=== PATIENT | female | born 1965 | race African-American/Black ===

== ENCOUNTER 2018-03-08 00:02 | Emergency (ER) | payer MEDICAID, OTHER ==
[~2018-03-08] VITALS: Ht 160 cm; Wt 66.0 kg
[2018-03-08] MEDS ORDERED: INSULIN REGULAR (HUMULIN R) 300UNITS/3ML SUBCUT ONE (05:30)
[2018-03-08] MEDS ORDERED: SODIUM CHLORIDE 0.9% 1,000 ML IV ONE (06:05)
[2018-03-08 06:31] LABS: BASOPHILS % 1.2 % (0.0-2.0); HEMATOCRIT. 40.9 % (36.0-48.0); LYMPHOCYTES % 27.3 % (20.0-50.0); MEAN CORPUSCULAR HEMOGLOBIN 27.4 pg (28.0-32.0); MEAN CORPUSCULAR VOLUME 80.3 fL (81.0-99.0); MEAN PLATELET VOLUME 9.7 fl (7.4-10.4); MONOCYTES % 5.9 % (2.0-8.0); NEUTROPHILS % 64.6 % (40.0-76.0); PLATELET 195 x1000/uL (130-400); RED BLOOD CELL COUNT 5.09 mill/uL (4.2-5.4); RED CELL DISTRIBUTION WIDTH 14.1 % (11.6-14.6)
[2018-03-08 06:38] LABS: PROTHROMBIN TIME 9.7 sec (9.1-11.1)
[2018-03-08 06:40] LABS: CHLORIDE 104 mEq/L (98-107)
[2018-03-08 07:28] LABS: CLARITY URINE CLEAR (CLEAR); COLOR URINE YELLOW (YELLOW); KETONES URINE NEGATIVE (NEGATIVE); LEUKOCYTE ESTERASE URINE NEGATIVE (NEGATIVE); NITRITE URINE POSITIVE (NEGATIVE); OCCULT BLOOD URINE NEGATIVE (NEGATIVE); PH URINE 5.5 (4.5-8.0); PROTEIN URINE NEGATIVE (NEGATIVE); SPECIFIC GRAVITY URINE 1.044 (1.005-1.030); UROBILINOGEN URINE 0.2 E.U./dL (0.2-1.0)
[2018-03-08 08:47] VITALS: BP 172/96
== END 2018-03-08 18:04 | disposition home or self-care (01) ==
LOC: ER 00:02
DX: L03.011 Cellulitis of right finger (principal); E11.9 Type 2 diabetes mellitus without complications
CPT/HCPCS: 36415; 80053; 81003; 82962; 85025; 85610; 96360; 96361; 96372; 99285; J1815; J7030; Z7610

== ENCOUNTER 2020-07-28 13:20 | Emergency (ER) | payer MEDICAID ==
[~2020-07-28] VITALS: Ht 160 cm; Wt 48.0 kg
[2020-07-28 13:24] VITALS: BP 180/98
[2020-07-28 14:26] LABS: CLARITY URINE CLEAR (CLEAR); COLOR URINE YELLOW (YELLOW); KETONES URINE NEGATIVE (NEGATIVE); LEUKOCYTE ESTERASE URINE NEGATIVE (NEGATIVE); NITRITE URINE NEGATIVE (NEGATIVE); OCCULT BLOOD URINE NEGATIVE (NEGATIVE); PROTEIN URINE NEGATIVE (NEGATIVE); SPECIFIC GRAVITY URINE 1.006 (1.005-1.030); UROBILINOGEN URINE 0.2 E.U./dL (0.2-1.0)
[2020-07-28 14:38] LABS: BASOPHILS % 0.8 % (0.0-2.0); EOSINOPHILS % 0.7 % (0.0-5.0); HEMATOCRIT. 44.2 % (36.0-48.0); HEMOGLOBIN. 14.6 g/dL (12.0-16.0); LYMPHOCYTES % 40.9 % (20.0-50.0); MEAN CORPUSCULAR HEMOGLOBIN 27.2 pg (28.0-32.0); MEAN CORPUSCULAR VOLUME 82.4 fL (81.0-99.0); MEAN PLATELET VOLUME 9.7 fl (7.4-10.4); MONOCYTES % 8.3 % (2.0-8.0); NEUTROPHILS % 49.3 % (40.0-76.0); PLATELET 251 x1000/uL (130-400); RED BLOOD CELL COUNT 5.37 mill/uL (4.2-5.4); RED CELL DISTRIBUTION WIDTH 13.7 % (11.6-14.6)
[2020-07-28 14:42] LABS: CHLORIDE 97 mEq/L (98-107)
== END 2020-07-28 15:56 | disposition home or self-care (01) ==
LOC: ER 13:20
DX: E11.65 Type 2 diabetes mellitus with hyperglycemia (principal); Z91.11 Patient's noncompliance with dietary regimen; R03.0 Elevated blood-pressure reading, without diagnosis of hypertension; Z79.4 Long term (current) use of insulin
CPT/HCPCS: 36415; 80053; 81003; 81025; 82962; 85025; 93005; 99284

== ENCOUNTER 2021-01-02 16:36 | Emergency (ER) | payer OTHER ==
[~2021-01-02] VITALS: Ht 160 cm; Wt 47.0 kg
[2021-01-02 18:45] LABS: BASOPHILS % 0.9 % (0.0-2.0); EOSINOPHILS % 0.6 % (0.0-5.0); HEMATOCRIT. 40.3 % (36.0-48.0); HEMOGLOBIN. 13.6 g/dL (12.0-16.0); LYMPHOCYTES % 27.9 % (20.0-50.0); MEAN CORPUSCULAR HEMOGLOBIN 27.9 pg (28.0-32.0); MEAN CORPUSCULAR VOLUME 82.9 fL (81.0-99.0); MEAN PLATELET VOLUME 9.5 fl (7.4-10.4); MONOCYTES % 7.2 % (2.0-8.0); NEUTROPHILS % 63.4 % (40.0-76.0); PLATELET 252 x1000/uL (130-400); RED BLOOD CELL COUNT 4.87 mill/uL (4.2-5.4); RED CELL DISTRIBUTION WIDTH 13.8 % (11.6-14.6)
[2021-01-02 18:53] LABS: CHLORIDE 101 mEq/L (98-107)
[2021-01-02 19:20] LABS: CLARITY URINE CLEAR (CLEAR); COLOR URINE YELLOW (YELLOW); KETONES URINE NEGATIVE (NEGATIVE); LEUKOCYTE ESTERASE URINE NEGATIVE (NEGATIVE); NITRITE URINE NEGATIVE (NEGATIVE); OCCULT BLOOD URINE NEGATIVE (NEGATIVE); PH URINE 5.5 (4.5-8.0); PROTEIN URINE NEGATIVE (NEGATIVE); SPECIFIC GRAVITY URINE 1.041 (1.005-1.030); UROBILINOGEN URINE 0.2 E.U./dL (0.2-1.0)
[2021-01-02 19:20] LABS: PROTHROMBIN TIME 10.9 sec (9.6-11.0)
[2021-01-02] MEDS ORDERED: INSULIN REGULAR (HUMULIN R) 300UNITS/3ML VIAL IV ONE (19:30)
[2021-01-02] MEDS ORDERED: SODIUM CHLORIDE 0.9% 1,000 ML IV ONE (19:30)
[2021-01-02 22:18] VITALS: BP 166/91
[2021-01-02] MEDS ORDERED: POLY119P2 MT (22:21)
[2021-01-02] MEDS ORDERED: DOCU100T MT (22:21)
== END 2021-01-02 22:43 | disposition home or self-care (01) ==
LOC: ER 16:41
DX: R10.32 Left lower quadrant pain (principal); K59.00 Constipation, unspecified; E11.65 Type 2 diabetes mellitus with hyperglycemia; I10 Essential (primary) hypertension; E86.0 Dehydration; K52.89 Other specified noninfective gastroenteritis and colitis; Z79.4 Long term (current) use of insulin
CPT/HCPCS: 36415; 74176; 80053; 81003; 82962; 83690; 85025; 85610; 93005; 96361; 96374; 99285; J1815; J7030; Z7610

== ENCOUNTER 2021-01-25 07:34 | Emergency (ER) | payer OTHER ==
[~2021-01-25] VITALS: Ht 160 cm; Wt 45.0 kg
[~2021-01-25 07:34] MED LIST: DOCU100T MT; POLY119P2 MT
[2021-01-25] MEDS ORDERED: SODIUM CHLORIDE 0.9% 1,000 ML IV ONE (08:00)
[2021-01-25 08:13] LABS: BASOPHILS % 0.8 % (0.0-2.0); EOSINOPHILS % 0.8 % (0.0-5.0); HEMATOCRIT. 36.8 % (36.0-48.0); HEMOGLOBIN. 12.8 g/dL (12.0-16.0); LYMPHOCYTES % 27.7 % (20.0-50.0); MEAN CORPUSCULAR HEMOGLOBIN 28.3 pg (28.0-32.0); MEAN CORPUSCULAR VOLUME 81.3 fL (81.0-99.0); MEAN PLATELET VOLUME 8.9 fl (7.4-10.4); MONOCYTES % 7.5 % (2.0-8.0); NEUTROPHILS % 63.2 % (40.0-76.0); PLATELET 249 x1000/uL (130-400); RED BLOOD CELL COUNT 4.53 mill/uL (4.2-5.4); RED CELL DISTRIBUTION WIDTH 13.6 % (11.6-14.6)
[2021-01-25 08:20] LABS: CHLORIDE 102 mEq/L (98-107)
[2021-01-25] MEDS ORDERED: ONDANSETRON HCL 4MG/2ML INJ IV ONE (10:45)
[2021-01-25] MEDS ORDERED: MORPHINE SULFATE 4 MG/ML CPJ (NOT FOR IM USE) IV ONE (10:45)
[2021-01-25 12:57] LABS: CLARITY URINE CLEAR (CLEAR); COLOR URINE YELLOW (YELLOW); KETONES URINE NEGATIVE (NEGATIVE); LEUKOCYTE ESTERASE URINE NEGATIVE (NEGATIVE); NITRITE URINE NEGATIVE (NEGATIVE); OCCULT BLOOD URINE NEGATIVE (NEGATIVE); PROTEIN URINE NEGATIVE (NEGATIVE); SPECIFIC GRAVITY URINE 1.019 (1.005-1.030); UROBILINOGEN URINE 0.2 E.U./dL (0.2-1.0)
[2021-01-25] MEDS ORDERED: DOCU-286 MT (15:06)
[2021-01-25] MEDS ORDERED: MAGN296S70 MT (15:06)
[2021-01-25] MEDS ORDERED: NAPR375T5 MT (15:07)
[2021-01-25 15:24] VITALS: BP 172/80
== END 2021-01-25 15:26 | disposition home or self-care (01) ==
LOC: ER 07:34
DX: D25.9 Leiomyoma of uterus, unspecified (principal); K59.00 Constipation, unspecified; E11.9 Type 2 diabetes mellitus without complications
CPT/HCPCS: 36415; 74177; 76830; 76856; 80053; 81003; 82962; 83690; 85025; 93005; 96361; 96374; 96375; 99285; J2270; J2405; J7030; Z7610

== ENCOUNTER 2021-09-17 23:24 | Emergency (ER) | payer OTHER ==
[~2021-09-17] VITALS: Ht 162.6 cm; Wt 69.0 kg
[~2021-09-17 23:24] MED LIST changes: +DOCU-286 MT; +MAGN296S70 MT; +NAPR375T5 MT
[2021-09-17 23:25] VITALS: BP 138/74
== END 2021-09-18 00:23 | disposition home or self-care (01) ==
LOC: ER 23:24
DX: K59.00 Constipation, unspecified (principal); E11.9 Type 2 diabetes mellitus without complications
CPT/HCPCS: 99283

== ENCOUNTER 2021-10-06 23:16 | Emergency (ER) | payer OTHER ==
[~2021-10-06] VITALS: Ht 162.6 cm; Wt 60.0 kg
[2021-10-06 23:26] VITALS: BP 173/84
== END 2021-10-07 00:25 | disposition left against medical advice (07) ==
LOC: ER 23:16
DX: R55 Syncope and collapse (principal); I10 Essential (primary) hypertension; E11.9 Type 2 diabetes mellitus without complications
CPT/HCPCS: 99283

== ENCOUNTER 2021-12-20 15:12 | Emergency (ER) | payer OTHER ==
[~2021-12-20] VITALS: Ht 162.6 cm; Wt 61.0 kg
[2021-12-20] MEDS ORDERED: KETOROLAC 30MG/ML VIAL IM ONE (21:15)
[2021-12-20 22:31] LABS: BASOPHILS % 0.4 % (0.0-2.0); EOSINOPHILS % 0.2 % (0.0-5.0); HEMATOCRIT. 40.7 % (36.0-48.0); HEMOGLOBIN. 13.8 g/dL (12.0-16.0); MEAN CORPUSCULAR HEMOGLOBIN 27.7 pg (28.0-32.0); MEAN CORPUSCULAR VOLUME 81.6 fL (81.0-99.0); MEAN PLATELET VOLUME 9.1 fl (7.4-10.4); MONOCYTES % 3.1 % (2.0-8.0); NEUTROPHILS % 85.3 % (40.0-76.0); PLATELET 207 x1000/uL (130-400); RED BLOOD CELL COUNT 4.99 mill/uL (4.2-5.4); RED CELL DISTRIBUTION WIDTH 13.9 % (11.6-14.6)
[2021-12-20 22:37] LABS: CHLORIDE 101 mEq/L (98-107)
[2021-12-21 00:25] VITALS: BP 169/94
== END 2021-12-21 00:25 | disposition home or self-care (01) ==
LOC: ER 15:12
DX: E11.65 Type 2 diabetes mellitus with hyperglycemia (principal); R10.9 Unspecified abdominal pain; Z79.899 Other long term (current) drug therapy
CPT/HCPCS: 36415; 71045; 71250; 72170; 74176; 76705; 80053; 84484; 85025; 99285

== ENCOUNTER 2022-06-01 10:32 | Emergency (ER) | payer OTHER ==
[~2022-06-01] VITALS: Ht 162.6 cm; Wt 51.0 kg
[2022-06-01 11:16] VITALS: BP 151/79
[2022-06-01] MEDS ORDERED: SODIUM CHLORIDE 0.9% 1,000 ML IV ONE (12:15)
== END 2022-06-01 12:00 | disposition left against medical advice (07) ==
LOC: ER 10:32
DX: Z53.21 Procedure and treatment not carried out due to patient leaving prior to being seen by health care provider (principal); I49.9 Cardiac arrhythmia, unspecified
CPT/HCPCS: 93005; J7030

== ENCOUNTER 2023-01-08 16:40 | Emergency (ER) | payer OTHER ==
[~2023-01-08] VITALS: Ht 165.1 cm; Wt 55.0 kg
[2023-01-08 16:50] VITALS: BP 150/90; PULSE 67; RESP 18; TEMP 97.7; O2SAT 97
== END 2023-01-08 18:16 | disposition left against medical advice (07) ==
LOC: ER 16:40
DX: G40.909 Epilepsy, unspecified, not intractable, without status epilepticus (principal); E11.9 Type 2 diabetes mellitus without complications; I10 Essential (primary) hypertension
CPT/HCPCS: 99283

== ENCOUNTER 2024-01-27 07:46 | Emergency (ER) | payer MEDICAID, OTHER ==
[~2024-01-27] VITALS: Ht 170.2 cm; Wt 57.0 kg
[2024-01-27 07:56] VITALS: O2SAT 100
[2024-01-27 09:40] LABS: BASOPHILS % 0.7 % (0.0-2.0); DIFFERENTIAL COMMENT 0; EOSINOPHILS % 0.4 % (0.0-5.0); HEMATOCRIT. 44.8 % (36.0-48.0); HEMOGLOBIN. 14.5 g/dL (12.0-16.0); LYMPHOCYTES % 13.1 % (20.0-50.0); MEAN CORPUSCULAR HEMOGLOBIN 27.7 pg (28.0-32.0); MEAN CORPUSCULAR HGB CONC 32.5 g/dL (31.0-37.0); MEAN CORPUSCULAR VOLUME 85.2 fL (81.0-99.0); MEAN PLATELET VOLUME 11.1 fl (7.4-10.4); MONOCYTES % 5.4 % (2.0-8.0); NEUTROPHILS % 80.4 % (40.0-76.0); PLATELET 199 x1000/uL (130-400); RED BLOOD CELL COUNT 5.26 mill/uL (4.2-5.4); RED CELL DISTRIBUTION WIDTH 15.6 % (11.6-14.6); WHITE BLOOD COUNT 9.2 x1000/uL (4.5-11.0)
[2024-01-27 09:50] LABS: CHLORIDE 101 mEq/L (98-107); POTASSIUM 3.9 mEq/L (3.5-5.1); SODIUM 134 mEq/L (136-145)
[2024-01-27 09:51] LABS: CALCIUM 9.5 mg/dL (8.7-10.4); CARBON DIOXIDE 26 mEq/L (21-32)
[2024-01-27 09:56] LABS: CREATININE 1.1 mg/dL (0.6-1.0); UREA NITROGEN BLOOD 21 mg/dL (9-23)
[2024-01-27 09:57] LABS: TROPONIN I HIGH SENSITIVITY 6 ng/L (3.0-34)
[2024-01-27 09:58] LABS: ALANINE AMINOTRANSFERASE 12 IU/L (10-49); ALBUMIN 4.7 g/dL (3.2-4.8); ASPARTATE AMINOTRANSFERASE 24 IU/L (<34); BILIRUBIN TOTAL 0.3 mg/dL (0.1-1.0)
[2024-01-27 09:59] LABS: PROTEIN TOTAL 7.7 g/dL (6.0-8.3)
[2024-01-27] MEDS: SODIUM CHLORIDE 0.9% 1,000 ML IV ONE (10:21)
[2024-01-27] MEDS: METFORMIN HCL 850MG TABLET PO NR (10:22)
[2024-01-27] MEDS: INSULIN REGULAR (HUMULIN R) 1000UNITS/10ML VIAL SUBCUT NR (10:26)
[2024-01-27 11:20] LABS: BILIRUBIN DIRECT < 0.1 mg/dL (<=3.0); GLUCOSE 423 mg/dL (70-105)
[2024-01-27] MEDS: LEVETIRACETAM 500MG PREMIX 100 ML IV ONE (13:12)
[2024-01-27] MEDS ORDERED: CLONIDINE 0.1MG TABLET PO PRN (15:00)
[2024-01-27] MEDS ORDERED: DIPHENHYDRAMINE 50MG/ML VIAL IV PRN (15:00)
[2024-01-27] MEDS ORDERED: DEXTROSE 50% WATER 50ML SYRINGE IV PRN (15:00)
[2024-01-27] MEDS ORDERED: ACETAMINOPHEN 325MG TABLET PO PRN (15:00)
[2024-01-27] MEDS ORDERED: IPRATROPIUM/ALBUTEROL 0.5-3(2.5)MG/3ML NEB HHN PRN (15:00)
[2024-01-27] MEDS ORDERED: ONDANSETRON HCL 4MG/2ML INJ IV PRN (15:00)
[2024-01-27 16:20] VITALS: BP 123/71; PULSE 86; RESP 15; TEMP 98.4
[2024-01-27] MEDS ORDERED: BLOOD SUGAR DIAGNOSTIC STRIP TEST SCH (17:00)
== END 2024-01-27 16:25 | disposition left against medical advice (07) ==
LOC: ER 07:46 → EDBEDREQTM 14:36 → EDBEDREQ 14:36 → ER 16:25
DX: R56.9 Unspecified convulsions (principal); E11.9 Type 2 diabetes mellitus without complications; I10 Essential (primary) hypertension; Z98.890 Other specified postprocedural states
CPT/HCPCS: 80076; 80048; 82010; 82962; 83036; 83690; 85025; 84484; 36415; 71045; 70450; 93970; 93005; 96361; 96365; 96372; 99285; J1953; J1815; Z7610

== ENCOUNTER 2024-12-15 15:10 | Emergency (ER) | payer OTHER ==
[~2024-12-15] VITALS: Ht 162.6 cm; Wt 59.0 kg
[~2024-12-15 15:10] MED LIST changes: +NAPR-1494 MT; -NAPR375T5 MT
[2024-12-15 15:23] VITALS: O2SAT 100
[2024-12-15] MEDS: KETOROLAC 30MG/ML VIAL IV STA (16:29)
[2024-12-15] MEDS: SODIUM CHLORIDE 0.9% 1,000 ML IV ONE (16:30)
[2024-12-15] MEDS: ONDANSETRON HCL 4MG/2ML INJ IV STA (16:30)
[2024-12-15 16:43] LABS: BASOPHILS % 0.8 % (0.0-2.0); DIFFERENTIAL COMMENT 0; HEMATOCRIT. 46.1 % (36.0-48.0); HEMOGLOBIN. 14.9 g/dL (12.0-16.0); LYMPHOCYTES % 12.8 % (20.0-50.0); MEAN CORPUSCULAR HEMOGLOBIN 27.1 pg (28.0-32.0); MEAN CORPUSCULAR HGB CONC 32.4 g/dL (31.0-37.0); MEAN CORPUSCULAR VOLUME 83.6 fL (81.0-99.0); MEAN PLATELET VOLUME 10.5 fl (7.4-10.4); MONOCYTES % 2.9 % (2.0-8.0); NEUTROPHILS % 83.5 % (40.0-76.0); PLATELET 222 x1000/uL (130-400); RED BLOOD CELL COUNT 5.52 mill/uL (4.2-5.4); WHITE BLOOD COUNT 10.4 x1000/uL (4.5-11.0)
[2024-12-15 16:45] LABS: CHLORIDE 101 mEq/L (98-107); POTASSIUM 3.6 mEq/L (3.5-5.1); SODIUM 138 mEq/L (136-145)
[2024-12-15 16:46] LABS: CALCIUM 9.6 mg/dL (8.7-10.4); CARBON DIOXIDE 21 mEq/L (21-32)
[2024-12-15 16:51] LABS: CREATININE 0.9 mg/dL (0.6-1.0); ETHANOL BLOOD < 10 mg/dL (<10); GLUCOSE 345 mg/dL (70-105); UREA NITROGEN BLOOD 14 mg/dL (9-23)
[2024-12-15 16:53] LABS: ALANINE AMINOTRANSFERASE 15 IU/L (10-49); ALBUMIN 4.9 g/dL (3.2-4.8); ASPARTATE AMINOTRANSFERASE 18 IU/L (<34); BILIRUBIN DIRECT 0.1 mg/dL (<=3.0); BILIRUBIN TOTAL 0.5 mg/dL (0.1-1.0); PROTEIN TOTAL 8.2 g/dL (6.0-8.3)
[2024-12-15] MEDS ORDERED: DICYCLOMINE 10 MG/5 ML ORAL SYR PO STA (17:37)
[2024-12-15 17:39] LABS: CLARITY URINE CLEAR (CLEAR); GLUCOSE URINE 3+ (NEGATIVE); KETONES URINE 3+ (NEGATIVE); LEUKOCYTE ESTERASE URINE NEGATIVE (NEGATIVE); NITRITE URINE NEGATIVE (NEGATIVE); OCCULT BLOOD URINE 2+ (NEGATIVE); PH URINE 5.5 (4.5-8.0); PROTEIN URINE 2+ (NEGATIVE); SPECIFIC GRAVITY URINE 1.025 (1.005-1.030); UROBILINOGEN URINE 0.2 E.U./dL (0.2-1.0)
[2024-12-15 17:49] LABS: COLOR URINE STRAW (YELLOW)
[2024-12-15 17:52] LABS: BACTERIA URINE NONE SEEN; MUCUS URINE 1+ /lpf (< = 2+); SQUAMOUS EPITHELIAL CELL URINE FEW /lpf (RARE/1+); WBC URINE NONE SEEN /hpf (0-2)
[2024-12-15 17:53] LABS: *AMPHETAMINES SCREEN URINE NEGATIVE (NEGATIVE); *BARBITURATES SCREEN URINE NEGATIVE (NEGATIVE); *BENZODIAZEPINES SCREEN URINE NEGATIVE (NEGATIVE); *COCAINE SCREEN URINE NEGATIVE (NEGATIVE)
[2024-12-15 17:54] LABS: CANNABINOID URINE SCREEN PRESUMPTIVE POSITIVE (NEGATIVE); ECSTASY MDMA SCREEN URINE NEGATIVE (NEGATIVE); METHADONE URINE SCREEN NEGATIVE (NEGATIVE); OPIATES URINE SCREEN NEGATIVE (NEGATIVE); PHENCYCLIDINE URINE SCREEN NEGATIVE (NEGATIVE)
[2024-12-15] MEDS: BLOOD SUGAR DIAGNOSTIC STRIP TEST SCH (18:00)
[2024-12-15 18:19] LABS: PROTHROMBIN TIME 10.3 sec (9.6-11.0)
[2024-12-15] MEDS ORDERED: FAMO-135 MT (18:39)
[2024-12-15] MEDS: LABETALOL 5MG/ML 4ML INJ IV ONE ×2 (18:41→18:46)
[2024-12-15] MEDS: ONDANSETRON 4MG ODT PO STA (18:46)
[2024-12-15] MEDS: MAGNESIUM/ALUMINUM HYDROXIDE/SIMETHICONE 30ML UDC PO STA (18:46)
[2024-12-15] MEDS: FAMOTIDINE 20MG TABLET PO ONE (18:46)
[2024-12-15] MEDS: DICYCLOMINE HCL 10MG CAPSULE PO NR (18:47)
[2024-12-15] MEDS: INSULIN LISPRO 100 UNITS/ML SUBCUT STA (18:57)
[2024-12-15] MEDS: HALOPERIDOL LACTATE 5MG/ML VIAL IM ONE (19:41)
[2024-12-15 19:44] VITALS: BP 161/86; PULSE 87; RESP 18; TEMP 37.3; O2SAT 100
== END 2024-12-15 19:50 | disposition home or self-care (01) ==
LOC: ER 15:10
DX: E11.65 Type 2 diabetes mellitus with hyperglycemia (principal); K29.70 Gastritis, unspecified, without bleeding; I10 Essential (primary) hypertension; F17.200 Nicotine dependence, unspecified, uncomplicated; F12.90 Cannabis use, unspecified, uncomplicated; Z79.1 Long term (current) use of non-steroidal anti-inflammatories (NSAID); Z79.899 Other long term (current) drug therapy
CPT/HCPCS: 80076; 80305; 80048; 81003; 80320; 82962; 83690; 85025; 85610; 36415; 74176; 96361; 96372; 96374; 96375; 99285; Q0162; J1630; J1815; J1885; J3490; J2405; J7030; Z7610; G0480

== ENCOUNTER 2025-03-27 21:49 | Emergency (ER) | payer MEDICAID, OTHER ==
[~2025-03-27] VITALS: Ht 167.6 cm; Wt 59.0 kg
[~2025-03-27 21:49] MED LIST changes: +FAMO-135 MT
[2025-03-27 21:51] VITALS: O2SAT 96
[2025-03-27] MEDS: HALOPERIDOL LACTATE 5MG/ML VIAL IM ONE (22:15)
[2025-03-27] MEDS: DIPHENHYDRAMINE 50MG/ML VIAL IM ONE (23:51)
[2025-03-27] MEDS: LORAZEPAM 2MG/ML UD SYRINGE IM SCH (23:52)
[2025-03-28 00:49] LABS: BASOPHILS % 0.5 % (0.0-2.0); EOSINOPHILS % 0.1 % (0.0-5.0); HEMATOCRIT. 41.7 % (36.0-48.0); HEMOGLOBIN. 13.7 g/dL (12.0-16.0); LYMPHOCYTES % 9.1 % (20.0-50.0); MEAN PLATELET VOLUME 10.2 fl (7.4-10.4); MONOCYTES % 4.6 % (2.0-8.0); NEUTROPHILS % 85.7 % (40.0-76.0); PLATELET 205 x1000/uL (130-400); RED BLOOD CELL COUNT 4.96 mill/uL (4.2-5.4); RED CELL DISTRIBUTION WIDTH 14.3 % (11.6-14.6)
[2025-03-28 01:02] LABS: CREATININE 1.0 mg/dL (0.6-1.0); TROPONIN I HIGH SENSITIVITY 10 ng/L (3.0-34); UREA NITROGEN BLOOD 14 mg/dL (9-23)
[2025-03-28 01:03] LABS: ETHANOL BLOOD < 10 mg/dL (<10)
[2025-03-28 01:04] LABS: ASPARTATE AMINOTRANSFERASE 13 IU/L (<34); BILIRUBIN DIRECT 0.1 mg/dL (<=3.0); BILIRUBIN TOTAL 0.5 mg/dL (0.1-1.0)
[2025-03-28 01:05] LABS: PROTEIN TOTAL 7.1 g/dL (6.0-8.3)
[2025-03-28 04:13] VITALS: BP 179/98; PULSE 103; RESP 13; TEMP 37.3; O2SAT 100
== END 2025-03-28 04:43 | disposition short-term general hospital (02) ==
LOC: ER 21:49 → CMPBEDREQ 03-28 07:47
DX: G93.40 Encephalopathy, unspecified (principal); E11.10 Type 2 diabetes mellitus with ketoacidosis without coma; E11.65 Type 2 diabetes mellitus with hyperglycemia; F12.90 Cannabis use, unspecified, uncomplicated; Z79.1 Long term (current) use of non-steroidal anti-inflammatories (NSAID); Z79.899 Other long term (current) drug therapy
CPT/HCPCS: 36415; 70450; 93005; 96372; 99285; 80076; 80048; 80307; 82010; 80329; 80320; 82550; 83735; 83930; 85025; 84484; J1200; J2060; 71045; G0480